=== PATIENT | female | born 1925 | race Two or more races ===

== ENCOUNTER → 2017-03-23 | Emergency (ER) | payer OTHER ==
[~2017-03-23] VITALS: Ht 160 cm; Wt 61.2 kg
== END | disposition home or self-care (01) ==
LOC: ER 21:15
DX: S01.02XA Laceration with foreign body of scalp, initial encounter (principal); W26.8XXA Contact with other sharp object(s), not elsewhere classified, initial encounter; Y93.89 Activity, other specified; Y92.018 Other place in single-family (private) house as the place of occurrence of the external cause; Y99.8 Other external cause status